=== PATIENT | female | born 1985 | race Caucasian/White ===

== ENCOUNTER 2021-11-16 03:10 | Emergency (ER) | payer OTHER ==
[~2021-11-16] VITALS: Ht 160 cm; Wt 49.9 kg
--- NOTE | 2021-11-16 03:40 | NUR ---
Madelin 88 from home c/o ruq pain rad to flanks after waking up this morning x 2 vomiting. PT A/OX4. TOLERATING R/A WELL WITH NO SOB. AMBULATORY WITH STEADY GAIT. PT IN GOWN. CONNECTED PT TO POX AND MONITOR. SAFETY MEASURES IN PLACE.
[2021-11-16] MEDS ORDERED: ONDANSETRON HCL/PF 4 MG/2 ML VIAL ONE (03:54)
[2021-11-16] MEDS ORDERED: MORPHINE SULFATE INJ 4 MG/ML DISP.SYRIN ONE (03:54)
[2021-11-16] MEDS ORDERED: ONDANSETRON HCL/PF 4 MG/2 ML VIAL IVP ONE (04:00)
[2021-11-16] MEDS ORDERED: IV NS 0.9% 1,000 ML BAG IV ONE (04:00)
[2021-11-16] MEDS ORDERED: MORPHINE SULFATE INJ 2 MG/ML DISP.SYRIN IV ONE (04:00)
[2021-11-16 04:12] LABS: BASOPHILS % (AUTO) 0.3 % (0.0-2.0); EOSINOPHILS % (AUTO) 0.7 % (0.0-6.0); HEMATOCRIT 40 % (33-45); HEMOGLOBIN 13.5 g/dL (11.5-14.8); LYMPHOCYTES # (AUTO) 2.3 K/uL (0.8-4.8); LYMPHOCYTES % (AUTO) 25.1 % (20.0-44.0); MEAN CORPUSCULAR HGB CONC 34 g/dl (31.0-36.0); MEAN CORPUSCULAR VOLUME 82 fL (82-100); MONOCYTES # (AUTO) 0.5 K/uL (0.1-1.30); MONOCYTES % (AUTO) 5.2 % (2.0-12.0); NEUTROPHILS # (AUTO) 6.3 K/uL (1.8-8.9); NEUTROPHILS % (AUTO) 68.7 % (43.0-81.0); PLATELET COUNT (AUTO) 181 K/uL (150-450); RED BLOOD CELL COUNT(AUTO) 4.86 MIL/uL (4.0-5.2); WHITE BLOOD COUNT (AUTO) 9.1 K/uL (4.3-11.0)
--- NOTE | 2021-11-16 04:13 | NUR ---
RAC #20G S/L; PATENT AND INTACT. BLOOD COLLECTED AND SENT TO LAB
[2021-11-16 04:15] LABS: BILIRUBIN,URINE NEGATIVE (NEGATIVE); COLOR,URINE YELLOW (YELLOW); LEUKOCYTE ESTERASE ,URINE TRACE (NEGATIVE); NITRITE, URINE NEGATIVE (NEGATIVE); PROTEIN,URINE NEGATIVE (NEGATIVE); UGLUCOSE NEGATIVE (NEGATIVE); UROBILINOGEN,URINE 0.2 EU/dL (0.2)
[2021-11-16 04:24] LABS: ALBUMIN 3.9 g/dL (3.4-5.0); BILIRUBIN,DIRECT 0.2 mg/dL (0.0-0.2); BILIRUBIN,TOTAL 0.3 mg/dL (0.2-1.0); CALCIUM, SERUM 9.4 mg/dL (8.5-10.1); CREATININE 0.8 mg/dL (0.6-1.3); POTASSIUM 3.3 mmol/L (3.5-5.1); TOTAL PROTEIN, SERUM 7.6 g/dL (6.4-8.2)
--- NOTE | 2021-11-16 04:45 | NUR ---
US TECH AT PT'S BEDSIDE
--- NOTE | 2021-11-16 04:55 | NUR ---
PT SIGNED WAIVER
--- NOTE | 2021-11-16 04:59 | NUR ---
PT TAKEN TO CT VIA [facility]
[2021-11-16] MEDS ORDERED: HYDROCODONE/APAP 5/325MG TABLET ONE (05:35)
[2021-11-16] MEDS ORDERED: HYDROCODONE/APAP 5/325MG TABLET PO ONE (06:00)
[2021-11-16 07:07] LABS: BACTERIA,URINE Few /HPF (None Seen); RBC,URINE NONE SEEN /HPF (0-2); SQUAMOUS EPITHELIAL CELL,UR Few /HPF (None Seen)
[2021-11-16 07:11] LABS: URINE AMORPHOUS PHOSPHATES Moderate /HPF (None Seen)
--- NOTE | 2021-11-16 07:33 | NUR ---
Patient discharged to home in stable condition. Written and verbal after care instructions given. Patient verbalizes understanding of instruction. IV removed. Catheter intact and site benign. Pressure and 4x4 applied to site. No bleeding noted. PT ambulatory with a steady gait
[2021-11-16 07:34] VITALS: BP 112/78
[2021-11-17] MEDS ORDERED: LORAZEPAM INJ 2 MG/ML VIAL ONE (17:45)
== END 2021-11-16 07:34 | disposition home or self-care (01) ==
LOC: ER 03:19
DX: R10.13 Epigastric pain (principal); R10.11 Right upper quadrant pain; R79.89 Other specified abnormal findings of blood chemistry; Z60.2 Problems related to living alone
CPT/HCPCS: 36415; 74176; 76705; 80048; 80076; 81001; 83690; 85025; 96360; 99284; J7030; J2060; J2270; J2405

== ENCOUNTER 2021-11-17 15:01 | Inpatient (IN) | payer OTHER ==
[~2021-11-17] VITALS: Ht 157.5 cm; Wt 52.2 kg
[2021-11-17 16:04] LABS: BASOPHILS % (AUTO) 0.5 % (0.0-2.0); EOSINOPHILS % (AUTO) 0.5 % (0.0-6.0); HEMATOCRIT 40 % (33-45); HEMOGLOBIN 13.3 g/dL (11.5-14.8); LYMPHOCYTES # (AUTO) 1.6 K/uL (0.8-4.8); LYMPHOCYTES % (AUTO) 36.3 % (20.0-44.0); MEAN CORPUSCULAR HGB CONC 34 g/dl (31.0-36.0); MEAN CORPUSCULAR VOLUME 82 fL (82-100); MONOCYTES # (AUTO) 0.3 K/uL (0.1-1.30); MONOCYTES % (AUTO) 6.9 % (2.0-12.0); NEUTROPHILS # (AUTO) 2.5 K/uL (1.8-8.9); NEUTROPHILS % (AUTO) 55.8 % (43.0-81.0); PLATELET COUNT (AUTO) 197 K/uL (150-450); RED BLOOD CELL COUNT(AUTO) 4.88 MIL/uL (4.0-5.2); WHITE BLOOD COUNT (AUTO) 4.5 K/uL (4.3-11.0)
[2021-11-17 16:16] LABS: CALCIUM, SERUM 9.2 mg/dL (8.5-10.1); CREATININE 0.7 mg/dL (0.6-1.3); POTASSIUM 4.5 mmol/L (3.5-5.1)
[2021-11-17 16:26] LABS: ALBUMIN 3.9 g/dL (3.4-5.0); BILIRUBIN,DIRECT 0.1 mg/dL (0.0-0.2); BILIRUBIN,TOTAL 0.5 mg/dL (0.2-1.0); TOTAL PROTEIN, SERUM 7.5 g/dL (6.4-8.2)
[2021-11-17] MEDS ORDERED: IV NS 0.9% 1,000 ML BAG IV ONE (17:00)
[2021-11-17] MEDS ORDERED: IOHEXOL-300 100 ML VIAL IV ONE (17:21)
[2021-11-17] MEDS ORDERED: CT SWABBABLE VALVE TRANS SET 1 EA INFUS.SET MC ONE (17:21)
[2021-11-17] MEDS ORDERED: IV NS 0.9% 250 ML IV ONE (17:21)
[2021-11-17 17:23] LABS: ACETAMINOPHEN < 0 ug/ml (10-30); ALCOHOL, BLOOD < 3 mg/dL (0-0)
[2021-11-17] MEDS: LORAZEPAM INJ 2 MG/ML VIAL IV ONE ×2 (17:47→17:49)
[2021-11-17] MEDS ORDERED: ACETYLCYSTEINE IV 6,000 MG/30 ML VIAL IV ONE ×4 (19:22→22:47)
[2021-11-17 19:57] LABS: ALBUMIN 3.8 g/dL (3.4-5.0); BILIRUBIN,DIRECT 0.1 mg/dL (0.0-0.2); BILIRUBIN,TOTAL 0.5 mg/dL (0.2-1.0); TOTAL PROTEIN, SERUM 7.4 g/dL (6.4-8.2)
[2021-11-17] MEDS ORDERED: ACETYLCYSTEINE IV 0 MG in IV D5W 500 ML IV SCH (20:00)
[2021-11-17] MEDS ORDERED: ACETYLCYSTEINE IV SCH ×2 (20:00→21:00)
[2021-11-17] MEDS ORDERED: D5W IV SCH ×2 (20:00→21:00)
[2021-11-17] MEDS ORDERED: D5W IV ONE (21:10)
[2021-11-17] MEDS ORDERED: ACETYLCYSTEINE IV ONE (21:10)
[2021-11-17] MEDS ORDERED: ONDANSETRON HCL/PF 4 MG/2 ML VIAL IVP PRN (22:00)
[2021-11-17] MEDS ORDERED: ACETAMINOPHEN 325 MG TABLET PO PRN (22:00)
[2021-11-17] MEDS ORDERED: Z GUARD REMEDY 4 OZ OINT TP PRN (22:00)
[2021-11-17] MEDS ORDERED: MAGNESIUM HYDROXIDE 30 ML UDC PO PRN (22:00)
[2021-11-17] MEDS ORDERED: MORPHINE SULFATE INJ 2 MG/ML DISP.SYRIN IV PRN (22:00)
[2021-11-17] MEDS ORDERED: ZOLPIDEM TARTRATE 5 MG TABLET PO PRN (22:00)
[2021-11-17] MEDS ORDERED: MAG HYDROX/AL HYDROX/SIMETH 30 ML UDC PO PRN (22:00)
[2021-11-17 22:50] VITALS: BP 136/89
[2021-11-18] MEDS ORDERED: ACETYLCYSTEINE IV SCH (01:00)
[2021-11-18] MEDS ORDERED: D5W IV SCH (01:00)
[2021-11-18] MEDS: IV D5/0.45 NACL 1,000 ML IV PRN ×2 (03:54→06:07)
[2021-11-18 06:48] LABS: BASOPHILS % (AUTO) 0.4 % (0.0-2.0); EOSINOPHILS % (AUTO) 0.8 % (0.0-6.0); HEMATOCRIT 39 % (33-45); HEMOGLOBIN 13.1 g/dL (11.5-14.8); LYMPHOCYTES # (AUTO) 2.2 K/uL (0.8-4.8); LYMPHOCYTES % (AUTO) 39.6 % (20.0-44.0); MEAN CORPUSCULAR HGB CONC 34 g/dl (31.0-36.0); MEAN CORPUSCULAR VOLUME 82 fL (82-100); MONOCYTES # (AUTO) 0.4 K/uL (0.1-1.30); MONOCYTES % (AUTO) 7.8 % (2.0-12.0); NEUTROPHILS # (AUTO) 2.8 K/uL (1.8-8.9); NEUTROPHILS % (AUTO) 51.4 % (43.0-81.0); PLATELET COUNT (AUTO) 205 K/uL (150-450); RED BLOOD CELL COUNT(AUTO) 4.75 MIL/uL (4.0-5.2); WHITE BLOOD COUNT (AUTO) 5.4 K/uL (4.3-11.0)
[2021-11-18 07:21] LABS: ALBUMIN 3.7 g/dL (3.4-5.0); BILIRUBIN,DIRECT 0.1 mg/dL (0.0-0.2); BILIRUBIN,TOTAL 0.5 mg/dL (0.2-1.0); CALCIUM, SERUM 9.4 mg/dL (8.5-10.1); CREATININE 0.6 mg/dL (0.6-1.3); MAGNESIUM 1.9 mg/dL (1.8-2.4); PHOSPHORUS 4.2 mg/dL (2.5-4.9); POTASSIUM 3.5 mmol/L (3.5-5.1); TOTAL PROTEIN, SERUM 7.3 g/dL (6.4-8.2)
[2021-11-18] MEDS ORDERED: ACETYLCYSTEINE IV ONE ×3 (08:45→21:00)
[2021-11-18] MEDS ORDERED: D5W IV ONE ×3 (08:45→21:00)
[2021-11-18] MEDS ORDERED: PANTOPRAZOLE 40 MG VIAL IV SCH (09:00)
== END 2021-11-18 13:45 | disposition home or self-care (01) ==
LOC: ER 15:09 → TELE 22:25 → MED 11-18 04:05
PROVIDERS: ADMIT Student in an Organized Health Care Education/Training Program; ATTEND Nurse Practitioner Acute Care
DX: K76.9 Liver disease, unspecified (principal); D32.9 Benign neoplasm of meninges, unspecified; R74.01 Elevation of levels of liver transaminase levels; F41.9 Anxiety disorder, unspecified; I10 Essential (primary) hypertension; T43.025A Adverse effect of tetracyclic antidepressants, initial encounter; Y92.009 Unspecified place in unspecified non-institutional (private) residence as the place of occurrence of the external cause; Z20.822 Contact with and (suspected) exposure to COVID-19
CPT/HCPCS: 36415; 80048-TC; 80074; 80076-TC; 83690-TC; 83735-TC; 84100-TC; 84702-TC; 85025-TC; 85730-TC; 86704; 86705; 86706; 86803; 87081-TC; 87340; C9113; C9803; G0378; G0480; J0132; J3490; J7030; J7050; J7060; J7070; Q9967